=== PATIENT | male | born 1945 | race Caucasian/White ===

== ENCOUNTER → 2020-03-18 | Outpatient (CLI) | payer MEDICARE, BC | LOC: ZCOL.LAB 11:00 | DX: M79.661 Pain in right lower leg (principal) ==

== ENCOUNTER → 2021-02-10 | Outpatient (CLI) | payer MEDICARE, BC | LOC: COL.RAD 09:14 | DX: Z01.812 Encounter for preprocedural laboratory examination (principal); C61 Malignant neoplasm of prostate; R91.1 Solitary pulmonary nodule; K44.9 Diaphragmatic hernia without obstruction or gangrene | CPT/HCPCS: A9503; Q9967 ==